=== PATIENT | male | born 1970 | race Caucasian/White ===

== ENCOUNTER 2020-01-16 09:09 | Emergency (ER) | payer OTHER ==
[~2020-01-16] VITALS: Ht 170.2 cm; Wt 62.1 kg
[2020-01-16] MEDS ORDERED: SULFAMETHOXAZOLE (09:52)
[2020-01-16] MEDS ORDERED: CATAFLAN 50MG (09:53)
[2020-01-16] MEDS ORDERED: AMOX-CLAV 875-1 EACH PO (16:13)
[2020-01-16] MEDS ORDERED: PEPCID AC20 MG PO (16:13)
[2020-01-16] MEDS ORDERED: INTESTINEX680 M1 PO (16:13)
[2020-01-16] MEDS ORDERED: NUCYNTA50 MG PO (16:13)
[2020-01-16] MEDS ORDERED: CELECOXIB200 MG PO (16:13)
[2020-01-16] MEDS ORDERED: ULTRAM50 MG PO (16:13)
== END 2020-01-16 17:59 | disposition home or self-care (01) ==
LOC: ER 09:09
DX: L03.115 Cellulitis of right lower limb (principal)

== ENCOUNTER 2021-01-02 08:21 | Emergency (ER) | payer OTHER ==
[~2021-01-02] VITALS: Ht 172.7 cm; Wt 65.8 kg
[~2021-01-02 08:21] MED LIST: AMOX-CLAV 875-1 EACH PO; CATAFLAN 50MG; CELECOXIB200 MG PO; INTESTINEX680 M1 PO; NUCYNTA50 MG PO; PEPCID AC20 MG PO; SULFAMETHOXAZOLE; ULTRAM50 MG PO
[2021-01-02] MEDS ORDERED: MUPIROCIN1 G1 TOP (12:21)
[2021-01-02] MEDS ORDERED: ZOFRAN8 MG PO (12:21)
[2021-01-02] MEDS ORDERED: AMOX-CLAV 875-1 EACH PO (12:21)
[2021-01-02] MEDS ORDERED: KETO10TA2 PO (12:21)
== END 2021-01-02 14:39 | disposition home or self-care (01) ==
LOC: ER 08:21
DX: S61.253A Open bite of left middle finger without damage to nail, initial encounter (principal); L02.818 Cutaneous abscess of other sites; L03.115 Cellulitis of right lower limb; W54.0XXA Bitten by dog, initial encounter; Y93.89 Activity, other specified; Y92.410 Unspecified street and highway as the place of occurrence of the external cause